=== PATIENT | female | born 1960 | race Caucasian/White ===

== ENCOUNTER 2021-07-26 07:52 | Emergency (ER) | payer BC ==
--- NOTE | 2021-07-26 08:06 | ERPHSYRPT ---
- History of Present Illness Time Seen by Provider: 07/26/21 08:05 Source: patient Exam Limitations: no limitations Physician History: This is a 61-year-old white female has a history of asthma and was feeling fine last evening but when she woke up this morning she was very short of breath. She does not have and did not have much chest pain whatsoever. She did take a nitro that she is prescribed in the distant past for some chest pain just to be safe. Again, currently she is having no chest pain. Her main complaint is shortness of breath. She has not been coughing. She has not had a fever. She has had no hemoptysis. She is not on any blood thinning medication. She has no history of DVT or pulmonary emboli. She has not recently traveled in a car for long hours or traveled in a plane. She has no pain complaints. Timing/Duration: today Activities at Onset: none Severity of Dyspnea-Max: moderate Severity of Dyspnea-Current: mild Possible Cause: no prior episodes Modifying Factors: Improves With: activity Associated Symptoms: No cough, No chest pain/discomfort, No fever Allergies/Adverse Reactions: acetaminophen [From Vicodin] Allergy (Verified 07/26/21 08:01) bacitracin [From Neosporin ([id number])] Allergy (Verified 07/26/21 08:01) cephalexin [From Keflex] Allergy (Verified 07/26/21 08:01) clarithromycin [From Biaxin] Allergy (Verified 07/26/21 08:01) clindamycin Allergy (Verified 07/26/21 08:01) hydrocodone [From Vicodin] Allergy (Verified 07/26/21 08:01) lisinopril Allergy (Verified 07/26/21 08:01) neomycin [From Neosporin ([id number])] Allergy (Verified 07/26/21 08:01) polymyxin B [From Neosporin ([id number])] Allergy (Verified 07/26/21 08:01) sulfamethoxazole [From Bactrim] Allergy (Verified 07/26/21 08:01) trimethoprim [From Bactrim] Allergy (Verified 07/26/21 08:01) Travel Risk - International Travel Have you traveled outside of the country in past 3 weeks: No - Coronavirus Screening Are you exhibiting any of the following symptoms?: No Close contact with a COVID-19 positive Pt in past 14-21 Days: No - Review of Systems Constitutional: No Symptoms Eyes: No Symptoms Ears, Nose, & Throat: No Symptoms Respiratory: Dyspnea, No Cough, No Wheezing Cardiac: No Symptoms Abdominal/Gastrointestinal: No Symptoms Genitourinary Symptoms: No Symptoms Musculoskeletal: No Symptoms Skin: No Symptoms Neurological: No Symptoms Psychological: No Symptoms Endocrine: No Symptoms Hematologic/Lymphatic: No Symptoms Immunological/Allergic: No Symptoms All Other Systems: Reviewed and Negative - Past Medical History Pertinent Past Medical History: Yes - Past Surgical History Past Surgical History: Yes - Nursing Vital Signs Nursing Vital Signs: Initial Vital Signs Temperature 96.9 F 07/26/21 08:01 Pulse Rate 80 07/26/21 08:01 Respiratory Rate 18 07/26/21 08:01 Blood Pressure 153/79 07/26/21 08:01 O2 Sat by Pulse Oximetry 98 07/26/21 08:01 Pain Scale Pain Intensity 6 - Physical Exam General Appearance: no apparent distress, alert, anxiety Eye Exam: PERRL/EOMI, eyes nml inspection Ears, Nose, Throat Exam: hearing grossly normal, normal ENT inspection, normal pharynx Neck Exam: normal inspection, non-tender, supple, full range of motion Respiratory Exam: normal breath sounds, lungs clear, airway intact, No chest tenderness, No respiratory distress Cardiovascular/Chest Exam: normal heart sounds, regular rate/rhythm, normal peripheral pulses Abdominal/Gastrointestinal Exam: soft, normal bowel sounds, No tenderness Rectal Exam: not done Extremity Exam: non-tender, normal range of motion, normal inspection, normal capillary refill, no calf tenderness, no pedal edema, pelvis stable Neurologic Exam: alert, oriented x 3, cooperative, 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, normal mood/affect, nml cerebellar function, nml station & gait, sensation nml Skin Exam: normal color, warm, dry Lymphatic Exam: No adenopathy SpO2 Interpretation: normal O2 Delivery: Room Air - Course Nursing assessment & vital signs reviewed: Yes Ordered Tests: Active Orders 24 hr Category Date Time Status EKG-ER Only STAT Care 07/26/21 08:20 Active IV Insertion STAT Care 07/26/21 08:20 Active Pulse Oximetry (ED) STAT Care 07/26/21 08:20 Active CHEST 1 VIEW (PORTABLE) Stat Exams 07/26/21 08:21 Completed CBC W DIFF Stat Lab 07/26/21 08:39 Completed CMP Stat Lab 07/26/21 08:39 Completed D-DIMER QUANTITATIVE Stat Lab 07/26/21 08:39 Completed NT PRO BNP Stat Lab 07/26/21 08:39 Completed PROTIME WITH INR Stat Lab 07/26/21 08:39 Completed TROPONIN Q3H Lab 07/26/21 08:39 Completed TROPONIN Q3H Lab 07/26/21 11:30 Ordered TROPONIN Q3H Lab 07/26/21 14:30 Ordered TROPONIN Q3H Lab 07/26/21 17:30 Ordered TROPONIN Q3H Lab 07/26/21 20:30 Ordered Lab/Rad Data: Laboratory Result Diagrams 07/26/21 08:39 07/26/21 08:39 Laboratory Results 07/26/21 07/26/21 07/26/21 Range/Units 08:39 08:39 08:39 WBC (4.0-10.5) K/mm3 RBC (4.1-5.4) M/mm3 Hgb (12.0-16.0) gm/dl Hct (35-47) % MCV (78-100) fl MCH (26-32) pg MCHC (32-36) g/dl RDW (11.5-14.0) % Plt Count (150-450) K/mm3 MPV (7.5-11.0) fl Gran % (36.0-66.0) % Eos # (Auto) (0-0.5) Absolute Lymphs (auto) (1.0-4.6) Absolute Monos (auto) (0.0-1.3) Lymphocytes % (24.0-44.0) % Monocytes % (0.0-12.0) % Eosinophils % (0.00-5.0) % Basophils % (0.0-0.4) % Absolute Granulocytes (1.4-6.9) Basophils # (0-0.4) PT 10.6 (9.4-12.5) SECONDS INR 0.90 (0.8-3.0) D-Dimer 277 (215-500) ng/mL Sodium 139 (137-145) mmol/L Potassium 4.4 (3.5-5.1) mmol/L Chloride 106 (98-107) mmol/L Carbon Dioxide 27 (22-30) mmol/L Anion Gap 10.2 (5-15) MEQ/L BUN 16 (7-17) mg/dL Creatinine 0.44 L (0.52-1.04) mg/dL Estimated GFR > 60.0 ML/MIN Glucose 165 H (74-106) mg/dL Calcium 9.3 (8.4-10.2) mg/dL Total Bilirubin 0.50 (0.2-1.3) mg/dL AST 21 (14-36) U/L ALT 13 (0-35) U/L Alkaline Phosphatase 90 (38-126) U/L Troponin I < 0.012 (0.000-0.034) ng/mL NT-Pro-B Natriuret Pep 41.8 (0-900) pg/mL Serum Total Protein 6.3 (6.3-8.2) g/dL Albumin 3.7 (3.5-5.0) g/dL 07/26/21 Range/Units 08:39 WBC 4.6 (4.0-10.5) K/mm3 RBC 4.15 (4.1-5.4) M/mm3 Hgb 11.7 L (12.0-16.0) gm/dl Hct 38.8 (35-47) % MCV 93.5 (78-100) fl MCH 28.2 (26-32) pg MCHC 30.2 L (32-36) g/dl RDW 15.3 H (11.5-14.0) % Plt Count 211 (150-450) K/mm3 MPV 10.1 (7.5-11.0) fl Gran % 63.1 (36.0-66.0) % Eos # (Auto) 0.19 (0-0.5) Absolute Lymphs (auto) 0.95 L (1.0-4.6) Absolute Monos (auto) 0.50 (0.0-1.3) Lymphocytes % 20.8 L (24.0-44.0) % Monocytes % 11.0 (0.0-12.0) % Eosinophils % 4.2 (0.00-5.0) % Basophils % 0.9 (0.0-0.4) % Absolute Granulocytes 2.88 (1.4-6.9) Basophils # 0.04 (0-0.4) PT (9.4-12.5) SECONDS INR (0.8-3.0) D-Dimer (215-500) ng/mL Sodium (137-145) mmol/L Potassium (3.5-5.1) mmol/L Chloride (98-107) mmol/L Carbon Dioxide (22-30) mmol/L Anion Gap (5-15) MEQ/L BUN (7-17) mg/dL Creatinine (0.52-1.04) mg/dL Estimated GFR ML/MIN Glucose (74-106) mg/dL Calcium (8.4-10.2) mg/dL Total Bilirubin (0.2-1.3) mg/dL AST (14-36) U/L ALT (0-35) U/L Alkaline Phosphatase (38-126) U/L Troponin I (0.000-0.034) ng/mL NT-Pro-B Natriuret Pep (0-900) pg/mL Serum Total Protein (6.3-8.2) g/dL Albumin (3.5-5.0) g/dL - Progress Progress: improved Air Movement: good Progress Note: 07/26/21 09:56 Chest x-ray shows no acute cardiopulmonary process. Blood Culture(s) Obtained: No Antibiotics given: No Counseled pt/family regarding: lab results, diagnosis, need for follow-up, rad results - Departure Departure Disposition: Home Clinical Impression: Shortness of breath Condition: Stable Critical Care Time: No Additional Instructions: Continue medication as prescribed. Call your primary care doctor today to make arrangements for follow-up appointment.
[2021-07-26 08:51] LABS: Absolute Neutrophil Ct (ANC) 2.88 (1.4-6.9); BASOPHIL % 0.9 % (0.0-0.4); Basophil (Absolute #) 0.04 (0-0.4); Eosinophil % 4.2 % (0.00-5.0); Eosinophil (Absolute #) 0.19 (0-0.5); Hematocrit 38.8 % (35-47); Hemoglobin 11.7 gm/dl (12.0-16.0); Lymphocyte (Absolute #) 0.95 (1.0-4.6); Lymphocytes % 20.8 % (24.0-44.0); Mean Cell Volume 93.5 fl (78-100); Mean Corpuscular Hemoglobin 28.2 pg (26-32); Mean Corpuscular Hgb Concent. 30.2 g/dl (32-36); Mean Platelet Volume 10.1 fl (7.5-11.0); Neutrophil % 63.1 % (36.0-66.0); Platelet Count 211 K/mm3 (150-450); Red Blood Count 4.15 M/mm3 (4.1-5.4); Red Cell Distribution Width 15.3 % (11.5-14.0); White Blood Count 4.6 K/mm3 (4.0-10.5)
[2021-07-26 08:57] LABS: INR 0.9 (0.8-3.0); PROTIME 10.6 SECONDS (9.4-12.5)
[2021-07-26 09:10] LABS: ALBUMIN 3.7 g/dL (3.5-5.0); ALKALINE PHOSPHATASE 90 U/L (38-126); ANION GAP 10.2 MEQ/L (5-15); BLOOD UREA NITROGEN 16 mg/dL (7-17); CHLORIDE 106 mmol/L (98-107); Calcium 9.3 mg/dL (8.4-10.2); Carbon Dioxide 27 mmol/L (22-30); Creatinine 1 0.44 mg/dL (0.52-1.04); EST GLOMERULAR FILTRATION RATE > 60.0 ML/MIN; Glucose 165 mg/dL (74-106); NT PRO BNP 41.8 pg/mL (0-900); Potassium 4.4 mmol/L (3.5-5.1); SGOT/AST 21 U/L (14-36); SGPT/ALT 13 U/L (0-35); SODIUM 139 mmol/L (137-145); Total Protein 6.3 g/dL (6.3-8.2)
--- NOTE | 2021-07-26 09:25 | XRAY ---
Indication: Short of breath. Comparison: None Portable chest clear. Heart not enlarged with mildly tortuous descending aorta. Bony thorax intact with mild osteopenia and degenerative changes. Impression: Nonacute chest with chronic features.
[2021-07-26 09:49] VITALS: BP 159/78; PULSE 65; O2SAT 96
== END 2021-07-26 10:05 | disposition home or self-care (01) ==
LOC: ED 07:52
DX: R06.02 Shortness of breath (principal)
CPT/HCPCS: 36415; 71045; 80053; 83880; 84484; 85025; 85379; 85610; 93005; 94760; 99284

== ENCOUNTER 2021-08-29 16:18 | Emergency (ER) | payer BC ==
--- NOTE | 2021-08-29 17:09 | XRAY ---
Indication: Posterior head injury following fall Multiple contiguous axial images obtained through the head without contrast. Comparison: None Ventriculosulcal pattern appears symmetric. No acute intracranial hemorrhage, abnormal extra-axial fluid collection, or mass effect. Fourth ventricle is midline without hydrocephalus. [place]-white matter differentiation preserved. Bony calvarium intact. Visualized paranasal sinuses and mastoid air cells are clear. Impression: Negative CT head without contrast exam.
--- NOTE | 2021-08-29 17:11 | XRAY ---
Indication: Posterior head injury following fall Multiple contiguous axial images obtained through the cervical spine. Sagittal and coronal reformatted images obtained. Comparison: None Axial images are negative for acute fracture, suspicious bony lesions, or spinal canal stenosis. Mild/moderate multilevel cervical thoracic degenerative endplate spurring greatest at C5-C6. Also mild/moderate multilevel bilateral degenerative facet hypertrophy. Sagittal and coronal reformatted images demonstrates normal alignment with multilevel degenerative disc space narrowing greatest at C3-C4. No acute compression fracture, subluxation, or jumped facet. Normal appearing craniocervical junction. Visualized noncontrasted soft tissues including lung apices are unremarkable. Impression: 1. Negative acute fracture/subluxation. 2. Multilevel cervical thoracic degenerative changes.
--- NOTE | 2021-08-29 17:13 | XRAY ---
Indication: Pain following fall. Comparison: None 2 view right forearm demonstrates mild osteopenia. No other bony, articular, or soft tissue abnormalities.
--- NOTE | 2021-08-29 17:15 | XRAY ---
Indication: Pain following fall. Comparison: None 3 view right knee demonstrates mildly sclerotic lateral tibial plateau fracture of uncertain chronicity and small effusion. Incidental osteopenia and 1 cm distal femur enchondroma. No other bony, articular, or soft tissue abnormalities.
[2021-08-29] MEDS ORDERED: TORAdol 30 mg Injection IM ONE (17:53)
--- NOTE | 2021-08-29 17:55 | ERPHSYRPT ---
- History of Present Illness Time Seen by Provider: 08/29/21 16:30 Source: patient Exam Limitations: no limitations Patient Subjective Stated Complaint: Pt states "I slipped on the steps of my trailer and fell. I fell off the side of the metal steps. There were three and I fell from the top. My back hurts but my right knee really hurts!" Triage Nursing Assessment: Pt presented alert and oriented X3, skin pwd PT able to speak in clear full sentences pt has tenderness noted to right forearm, pain in occiput, back, bilat to spine, right knee, and has abrasion to posterior left thigh. Right knee swollen, csm X 4 Physician History: Patient is a 61-year-old female presents for emergency department for evaluation of pain to her right knee, right forearm and head. Patient states she slipped off of a step. Patient was on the steps leading up to her trailer. She was at the top step. There are 3 steps total to get into the trailer from the ground. Patient slipped and fell backwards. Patient hit her head. Patient has pain to her right forearm right knee. Pain described as an ache that is localized. Pain worse with movement and palpation. Pain improved with rest. No other injuries reported. The fall was mechanical. It was not associated with any neuro or cardiovascular symptomology. It was not associated with chest pain or shortness of breath. No associated numbness tingling or weakness. Patient states the step was slippery as it is icy out. Patient voices no other complaints or concerns at this time. Method of Injury: fell Occurred: just prior to arrival Quality: constant Severity of Pain-Max: moderate Severity of Pain-Current: mild Lower Extremities Pain: knee: right Modifying Factors: Improves With: nothing Associated Symptoms: none Allergies/Adverse Reactions: acetaminophen [From Vicodin] Allergy (Verified 07/26/21 08:01) bacitracin [From Neosporin ([id number])] Allergy (Verified 07/26/21 08:01) cephalexin [From Keflex] Allergy (Verified 07/26/21 08:01) clarithromycin [From Biaxin] Allergy (Verified 07/26/21 08:01) clindamycin Allergy (Verified 07/26/21 08:01) hydrocodone [From Vicodin] Allergy (Verified 07/26/21 08:01) lisinopril Allergy (Verified 07/26/21 08:01) neomycin [From Neosporin ([id number])] Allergy (Verified 07/26/21 08:01) polymyxin B [From Neosporin ([id number])] Allergy (Verified 07/26/21 08:01) sulfamethoxazole [From Bactrim] Allergy (Verified 07/26/21 08:01) trimethoprim [From Bactrim] Allergy (Verified 07/26/21 08:01) Home Medications: Losartan Potassium [Cozaar] 100 mg PO DAILY 08/29/21 [History] Metformin HCl 500 mg [Glucophage 500 MG] 500 mg PO BIDWM 08/29/21 [History] Pregabalin [Lyrica 100Mg] 100 mg PO DAILY 08/29/21 [History] Prochlorperazine Maleate 5 mg PO DAILY 08/29/21 [History] Ropinirole HCl 1 mg PO DAILY 08/29/21 [History] Tizanidine HCl 6 mg PO DAILY 08/29/21 [History] Venlafaxine HCl [Venlafaxine HCl ER] 75 mg PO DAILY 08/29/21 [History] Hx Tetanus, Diphtheria Vaccination/Date Given: Yes Hx Influenza Vaccination/Date Given: Yes Hx Pneumococcal Vaccination/Date Given: No Immunizations Up to Date: Yes Travel Risk - International Travel Have you traveled outside of the country in past 3 weeks: No - Coronavirus Screening Are you exhibiting any of the following symptoms?: No Close contact with a COVID-19 positive Pt in past 14-21 Days: No - Vaccine Status Have you recieved a Covid-19 vaccination: Yes Heliotherapist: Moderna - Vaccination Dates Date of 2cond Vaccination (if applicable): 12/2020 - Review of Systems Constitutional: No Symptoms, No Fever, No Chills Eyes: No Symptoms Ears, Nose, & Throat: No Symptoms Respiratory: No Symptoms, No Cough, No Dyspnea Cardiac: No Symptoms, No Chest Pain, No Edema, No Syncope Abdominal/Gastrointestinal: No Symptoms, No Abdominal Pain, No Nausea, No Vomiting, No Diarrhea Genitourinary Symptoms: No Symptoms, No Dysuria Musculoskeletal: No Symptoms, No Back Pain, No Neck Pain Skin: No Symptoms, No Rash Neurological: No Symptoms, No Dizziness, No Focal Weakness, No Sensory Changes Psychological: No Symptoms Endocrine: No Symptoms Hematologic/Lymphatic: No Symptoms Immunological/Allergic: No Symptoms All Other Systems: Reviewed and Negative - Past Medical History Pertinent Past Medical History: Yes Neurological History: No Pertinent History Cardiac History: High Cholesterol, Hypertension Respiratory History: Asthma Endocrine Medical History: Diabetes Type II Musculoskeletal History: Fibromyalgia GI Medical History: No Pertinent History History: No Pertinent History Psycho-Social History: No Pertinent History Female Reproductive Disorders: No Pertinent History Other Medical History: scoliosis - Past Surgical History Past Surgical History: Yes Neuro Surgical History: No Pertinent History Cardiac: No Pertinent History Respiratory: No Pertinent History Gastrointestinal: No Pertinent History Genitourinary: No Pertinent History Musculoskeletal: No Pertinent History Female Surgical History: No Pertinent History - Social History Smoking Status: Never smoker Exposure to second hand smoke: Yes Drug Use: none Patient Lives Alone: No - Female History Hx Now: No - Nursing Vital Signs Nursing Vital Signs: Initial Vital Signs Temperature 97.9 F 08/29/21 16:20 Pulse Rate 87 08/29/21 16:20 Respiratory Rate 20 08/29/21 16:20 Blood Pressure 167/86 08/29/21 16:20 O2 Sat by Pulse Oximetry 99 08/29/21 16:20 Pain Scale Pain Intensity 10 - Physical Exam General Appearance: no apparent distress, alert Eyes, Ears, Nose, Throat Exam: TMs normal, pharynx normal, moist mucous membrane s Neck Exam: normal inspection, non-tender, supple, other (Some tenderness along the midline spine mostly at the cervical spine paraspinal musculature.) Cardiovascular/Respiratory Exam: chest non-tender, normal breath sounds, regular rate/rhythm, no respiratory distress Gastrointestinal/Abdominal Exam: non-tender, soft, guarding, No no organomegaly, No no hernia Back Exam: normal inspection, normal range of motion, No vertebral tenderness Hips Exam: bilateral: non-tender, normal inspection, normal range of motion, no evidence of injury Legs Exam: bilateral leg: non-tender, normal inspection, normal range of motion, no evidence of injury Knees Exam: right knee: joint effusion, pain, soft tissue tenderness, swelling, other (Tenderness to palpation along the tibial plateau. Overlying soft tissue intact. Bilateral lower extremities neurovascular intact distally. Compartments are soft. Cap refill less than 2 seconds. PT DP pulses palpable bilaterally.), left knee: non-tender, normal inspection, normal range of motion, no evidence of injury Ankle Exam: bilateral ankle: non-tender, normal inspection, normal range of motion, no evidence of injury Foot Exam: bilateral foot: non-tender, normal inspection, normal range of motion, no evidence of injury Neuro/Tendon Exam: normal sensation, normal motor functions, normal tendon functions Mental Status Exam: alert, oriented x 3, cooperative Skin Exam: normal color, warm, dry SpO2 Interpretation: normal SpO2: 99 O2 Delivery: Room Air - Course Nursing assessment & vital signs reviewed: Yes - Radiology Exams Knee X-ray Interpretation: Teleradiologist Report (Mild sclerotic lateral tibial plateau fracture of uncertain chronicity and small effusion. Incidental osteopenia and 1 cm distal femur enchondroma. No other bony articular or soft tissue abnormalities.) Forearm X-ray Interpretation: Teleradiologist Report (Mild osteopenia, no other bony articular soft tissue abnormalities.) - CT Exams Cervical Spine CT Interpretation: Tele-radiologist Report (Negative for acute fracture or subluxation. Multilevel cervical thoracic degenerative changes. No spinal stenosis. Cervical and thoracic degenerative endplate spurring greatest at C5- C6.) Head CT Interpretation: Tele-radiologist Report (Negative CT head without contrast exam. Ventricular to low sulcal pattern appears symmetric. No acute intracranial hemorrhage. No abnormal extra-axial fluid collection. No mass- effect. Fourth ventricle is midline without hydrocephalus. [place]-white matter differentiation preserved. Bony calvari) Ordered Tests: Active Orders 24 hr Category Date Time Status CERVICAL SPINE WO CONTRAST [CT] Stat Exams 08/29/21 16:38 Completed FOREARM Stat Exams 08/29/21 16:39 Completed HEAD WITHOUT CONTRAST [CT] Stat Exams 08/29/21 16:38 Completed KNEE (3 VIEWS) Stat Exams 08/29/21 16:39 Completed Medication Summary Discontinued Medications Generic Name Dose Route Start Last Admin Trade Name Freq PRN Reason Stop Dose Admin Ketorolac Tromethamine 30 mg 08/29/21 17:53 08/29/21 18:06 Ketorolac Tromethamine 30 Mg/Ml Inj IM 08/29/21 17:54 30 mg STAT ONE Administration Ketorolac Tromethamine Confirm 08/29/21 18:05 Ketorolac Tromethamine 30 Mg/Ml Inj Administered 08/29/21 18:06 Dose 30 mg .ROUTE .STK-MED ONE Morphine Sulfate 4 mg 08/29/21 18:03 08/29/21 18:06 Morphine Sulfate 4 Mg/Ml Injection IM 08/29/21 18:04 4 mg STAT ONE Administration Morphine Sulfate Confirm 08/29/21 18:06 Morphine Sulfate 4 Mg/Ml Injection Administered 08/29/21 18:07 Dose 4 mg .ROUTE .STK-MED ONE - Progress Progress: improved Progress Note: Patient declined an x-ray of her lumbar spine. Risk, benefits and alternatives for back imaging discussed. Patient states she does not want a back x ray at this time. Patient states it does not hurt "that bad. Patient states if it continues to hurt she will get an x-ray then. Patient is more concerned with her right knee. Right knee shows a possible right tibial plateau fracture. There is a small effusion associated with this. Right elbow is negative for fracture dislocation. CT head and neck are also symptoms unremarkable for acute injury. Patient's right knee will be placed in a right knee immobilizer. Patient will be referred to orthopedic clinic tomorrow morning. 08/29/21 18:12 Patient reassessed. Pain improved. Patient states she is ready for discharge.. Patient states she will be staying with her daughter tonio. Patient understands that if she develops new pain or ongoing pain the problematic area should be x-rayed or imaged. Patient understands and agrees to follow-up with her primary care doctor and orthopedic doctor. Portions of this note were created with voice recognition technology. There may be grammatical, spelling, punctuation or sound alike errors 08/29/21 18:18 Counseled pt/family regarding: lab results, diagnosis, need for follow-up, rad results - Departure Departure Disposition: Home Clinical Impression: Tibial plateau fracture, right, Osteopenia, Enchondroma of femur, Knee effusion, right, Arthritis of spine Condition: Stable Critical Care Time: No Referrals: DOCTOR,NO FAMILY [Primary Care Provider] - Follow up/PCP as directed STEVE VALERIO DO [ACTIVE STAFF] - Follow up/PCP as directed Additional Instructions: Discharge/Care Plan BRENDAN PHILLIP was seen on 08/29/21 in the Emergency Room. The patient was counseled regarding Diagnosis,Lab results, Imaging studies, need for follow up and when to return to the Emergency Room. Prescriptions given: Discharge Note I have spoken with the patient and/or caregivers. I have explained the patient's condition, diagnosis and treatment plan based on the information available to me at this time. I have answered the patient's and/or caregiver's questions and addressed any concerns. The patient and/or caregivers have as good understanding of the patient's diagnosis, condition and treatment plan as can be expected at this point. The vital signs have been stable. The patient's condition is stable and appropriate for discharge from the emergency department. The patient will pursue further outpatient evaluation with the primary care physician or other designated or consulting physician as outlined in the discharge instructions. The patient and/or caregivers are agreeable to this plan of care and follow-up instructions have been explained in detail. The patient and/or caregivers have received these instruction. The patient/and or caregivers are aware that any significant change in condition or worsening of symptoms should prompt an immediate return to this or the closest emergency department or call 911. Outpatient Orders: Ortho Referral Time Frame: 1 Day, Facility: [facility]. Hosp, Location: [facility] [address]
[2021-08-29] MEDS ORDERED: MORPHINE SULFATE 4 MG INJ IM ONE (18:03)
[2021-08-29] MEDS ORDERED: TORAdol 30 mg Injection ONE (18:05)
[2021-08-29] MEDS ORDERED: MORPHINE SULFATE 4 MG INJ ONE (18:06)
[2021-08-29 19:14] VITALS: BP 154/71; PULSE 79; O2SAT 98
== END 2021-08-29 19:43 | disposition home or self-care (01) ==
LOC: ED 16:18
DX: S82.141A Displaced bicondylar fracture of right tibia, initial encounter for closed fracture (principal); W00.1XXA Fall from stairs and steps due to ice and snow, initial encounter; Y92.028 Other place in mobile home as the place of occurrence of the external cause; D16.21 Benign neoplasm of long bones of right lower limb; M25.461 Effusion, right knee; M85.80 Other specified disorders of bone density and structure, unspecified site; M47.9 Spondylosis, unspecified; M79.631 Pain in right forearm; R51.9 Headache, unspecified; E78.5 Hyperlipidemia, unspecified; I10 Essential (primary) hypertension; E11.9 Type 2 diabetes mellitus without complications; Z79.84 Long term (current) use of oral hypoglycemic drugs; Z79.899 Other long term (current) drug therapy
CPT/HCPCS: 70450; 72125; 73090; 73562; 96372; 99284; J1885; J2270; L1830

== ENCOUNTER 2023-02-07 14:36 | Day surgery (SDC) | payer MEDICAID, OTHER ==
[2023-02-07] MEDS ORDERED: SYNVISC 16 MG/2 ML SYRINGE IU ONE (14:37)
[2023-02-07] MEDS ORDERED: LIDOCAINE HCL 1% 50 MG/5 ML VL PF IJ ONE (14:37)
--- NOTE | 2023-02-07 20:57 | XRAY ---
Indication: Right knee injection. Intraoperative fluoroscopy provided for 7 seconds. Single digital spot images submitted for interpretation demonstrates needle tip projecting over the right femur intercondylar notch. Small amount of contrast injected for needle tip placement. Correlate with intraoperative findings/report.
--- NOTE | 2023-02-08 09:04 | XRAY ---
7 seconds of fluoroscopy was used in surgery for a right intra-articular knee injection.
== END 2023-02-07 17:35 | disposition home or self-care (01) ==
LOC: SDC-PAIN 14:36
PROVIDERS: ATTEND Psychiatry & Neurology Pain Medicine
DX: M17.11 Unilateral primary osteoarthritis, right knee (principal); E11.9 Type 2 diabetes mellitus without complications; Z79.899 Other long term (current) drug therapy
CPT/HCPCS: 20610; 73560; 77002; 82947; J2001; J7325; Q9966

== ENCOUNTER 2023-02-14 14:30 | Day surgery (SDC) | payer MEDICAID, OTHER ==
[2023-02-14] MEDS ORDERED: SYNVISC 16 MG/2 ML SYRINGE IU ONE (14:31)
[2023-02-14] MEDS ORDERED: LIDOCAINE HCL 1% 50 MG/5 ML VL PF IJ ONE (14:31)
--- NOTE | 2023-02-14 19:29 | XRAY ---
Indication: Right knee injection. Intraoperative fluoroscopy provided for 11 seconds. Single digital spot image submitted for interpretation demonstrates needle tip projecting over the right femur intercondylar notch. Small amount of contrast injected for needle tip placement. Correlate with intraoperative findings/report.
--- NOTE | 2023-02-15 10:04 | XRAY ---
11 seconds of fluoroscopy was used in surgery for a right intra-articular knee injection.
== END 2023-02-14 16:27 | disposition home or self-care (01) ==
LOC: SDC-PAIN 14:30
PROVIDERS: ATTEND Psychiatry & Neurology Pain Medicine
DX: M17.11 Unilateral primary osteoarthritis, right knee (principal); E11.9 Type 2 diabetes mellitus without complications; Z79.899 Other long term (current) drug therapy
CPT/HCPCS: 20610; 73560; 77002; 82947; J2001; J7325; Q9966

== ENCOUNTER 2023-02-21 14:28 | Day surgery (SDC) | payer OTHER ==
[2023-02-21] MEDS ORDERED: SYNVISC 16 MG/2 ML SYRINGE IU ONE (14:29)
[2023-02-21] MEDS ORDERED: LIDOCAINE HCL 1% 50 MG/5 ML VL PF IJ ONE (14:29)
--- NOTE | 2023-02-21 17:12 | XRAY ---
11 seconds of fluoroscopy was used in surgery for a right knee intra-articular injection.
== END 2023-02-21 17:05 | disposition home or self-care (01) ==
LOC: SDC-PAIN 14:28
PROVIDERS: ATTEND Psychiatry & Neurology Pain Medicine
DX: M17.11 Unilateral primary osteoarthritis, right knee (principal); E11.9 Type 2 diabetes mellitus without complications; Z79.899 Other long term (current) drug therapy
CPT/HCPCS: 20610; 73560; 77002; 82947; J2001; J7325; Q9966

== ENCOUNTER 2024-04-30 15:50 | Day surgery (SDC) | payer MEDICARE ==
[2024-04-30] MEDS ORDERED: SYNVISC 16 MG/2 ML SYRINGE IU ONE (15:51)
[2024-04-30] MEDS ORDERED: LIDOCAINE HCL 1% 50 MG/5 ML VL PF IJ ONE (15:51)
--- NOTE | 2024-04-30 17:09 | XRAY ---
6 seconds of fluoroscopy was used in surgery for a left intra-articular knee injection.
--- NOTE | 2024-04-30 17:09 | XRAY ---
Indication: Left knee injection. Intraoperative fluoroscopy provided for 6 seconds. Single digital spot images submitted for interpretation demonstrates needle tip projecting over left femur intercondylar notch. Small amount of contrast injected for needle tip placement. Correlate with intraoperative findings/report.
--- NOTE | 2024-04-30 17:10 | XRAY ---
8 seconds of fluoroscopy was used in surgery for a right intra-articular knee injection.
--- NOTE | 2024-04-30 17:10 | XRAY ---
Indication: Right knee injection. Intraoperative fluoroscopy provided for 8 seconds. Single digital spot images submitted for interpretation demonstrates needle tip projecting over right femur intercondylar notch. Small amount of contrast injected for needle tip placement. Correlate with intraoperative findings/report.
== END 2024-04-30 17:05 | disposition home or self-care (01) ==
LOC: SDC-PAIN 15:50
PROVIDERS: ATTEND Psychiatry & Neurology Pain Medicine
DX: M17.0 Bilateral primary osteoarthritis of knee (principal); E11.9 Type 2 diabetes mellitus without complications
CPT/HCPCS: 20610; 73560; 77002; 82947; J2001; J7325; Q9966

== ENCOUNTER 2024-05-07 14:55 | Day surgery (SDC) | payer MEDICARE ==
[2024-05-07] MEDS ORDERED: SYNVISC 16 MG/2 ML SYRINGE IU ONE (14:56)
[2024-05-07] MEDS ORDERED: LIDOCAINE HCL 1% 50 MG/5 ML VL PF IJ ONE (14:56)
--- NOTE | 2024-05-07 20:14 | XRAY ---
Indication: Right knee injection Intraoperative fluoroscopy provided for 9 seconds. Single digital spot image submitted for interpretation demonstrates needle tip projecting over the right femur intercondylar notch. Small amount of contrast injected for needle tip placement. Correlate with intraoperative findings/report.
--- NOTE | 2024-05-07 20:14 | XRAY ---
Indication: Left knee injection Intraoperative fluoroscopy provided for 7 seconds. Single digital spot image submitted for interpretation demonstrates needle tip projecting over the left femur intercondylar notch. Small amount of contrast injected for needle tip placement. Correlate with intraoperative findings/report.
--- NOTE | 2024-05-08 21:05 | XRAY ---
7 seconds of fluoroscopy was used in surgery for a left intra-articular knee injection.
--- NOTE | 2024-05-08 21:06 | XRAY ---
9 seconds of fluoroscopy was used in surgery for a right intra-articular knee injection.
== END 2024-05-07 18:15 | disposition home or self-care (01) ==
LOC: SDC-PAIN 14:55
PROVIDERS: ATTEND Psychiatry & Neurology Pain Medicine
DX: M17.0 Bilateral primary osteoarthritis of knee (principal); E11.9 Type 2 diabetes mellitus without complications
CPT/HCPCS: 20610; 73560; 77002; 82947; J2001; J7325; Q9966

== ENCOUNTER 2024-05-14 15:04 | Day surgery (SDC) | payer MEDICARE ==
[2024-05-14] MEDS ORDERED: SYNVISC 16 MG/2 ML SYRINGE IU ONE (15:05)
[2024-05-14] MEDS ORDERED: LIDOCAINE HCL 1% AMPUL 5 ML IJ ONE (15:05)
--- NOTE | 2024-05-14 19:35 | XRAY ---
Indication: Left knee injection. Intraoperative fluoroscopy provided for 6 seconds. Single digital spot image submitted for interpretation demonstrates needle tip projecting over left femur intercondylar notch. Small amount of contrast injected for needle tip placement. Correlate with intraoperative findings/report.
--- NOTE | 2024-05-14 19:36 | XRAY ---
Indication: Right knee injection. Intraoperative fluoroscopy provided for 9 seconds. Single digital spot image submitted for interpretation demonstrates needle tip projecting over right femur intercondylar notch. Small amount of contrast injected for needle tip placement. Correlate with intraoperative findings/report.
--- NOTE | 2024-05-15 11:27 | XRAY ---
6 seconds of fluoroscopy was used in surgery for a left intra-articular knee injection.
--- NOTE | 2024-05-15 11:27 | XRAY ---
9 seconds of fluoroscopy was used in surgery for a right intra-articular knee injection.
== END 2024-05-14 17:48 | disposition home or self-care (01) ==
LOC: SDC-PAIN 15:04
PROVIDERS: ATTEND Psychiatry & Neurology Pain Medicine
DX: M17.0 Bilateral primary osteoarthritis of knee (principal); E11.9 Type 2 diabetes mellitus without complications
CPT/HCPCS: 20610; 73560; 77002; 82947; J7325; Q9966